=== PATIENT | female | born 1980 | race Hispanic/Latino ===

== ENCOUNTER 2017-05-28 03:54 | Emergency (ER) | payer OTHER ==
[2017-05-28 04:36] VITALS: TEMP 98.3; O2SAT 99
[2017-05-28] MEDS ORDERED: Sodium Chloride 0.9% 1,000 ML IV STA (04:51)
--- NOTE | 2017-05-28 05:14 | ED PDOC ---
Syncope/Near Syncope/Dizziness Chief Complaint (Provider): Syncope History Per: Patient History/Exam Limitations: no limitations Additional Complaint(s): 37 y/o F presenting for evaluation of syncopal episode that occurred a few hours ago. Pt explains feeling chills, fatigue and generalized body aches for 2 days. Today around 2 AM, pt took a 45 minutes warm bath with Epson and jin, pt sat at edge of bed when suddenly she felt dizzy, saw black spots on visual field and lost consciousness. Pt fell down and hit her head with a table. Pt believes syncope last for a few seconds. Pt reports seeing blood coming from lateral left orbital area. Pt reports [place]. Pt denies fever, CP, SOB, palpitations, peripheral edema. Medications: OCP's NKDA PMHx: denied PSHx: denied FH: Mother with atrial fibrillation SHx No tobacco or rec drugs, OBHx: LMP: currently with menses. <Luciano Blake - Last Filed: 05/28/17 06:22> <Femi Neri - Last Filed: 05/28/17 06:40> Time Seen by Provider: 05/28/17 04:07 Chief Complaint (Nursing): Syncope Supervising Attending Note - Attestation: I have personally seen and examined this patient.: Yes I have fully participated in the care of the patient.: Yes I have reviewed all pertinent clinical information: Yes <Femi Neri - Last Filed: 05/28/17 06:40> Past Medical History Vital Signs: Last Vital Signs Temp 98.3 F 05/28/17 04:33 Pulse 86 05/28/17 04:33 Resp 18 05/28/17 04:33 BP 145/97 H 05/28/17 04:33 Pulse Ox 99 05/28/17 04:33 - Medical History PMH: No Chronic Diseases - Family History Family History: States: No Known Family Hx - Living Arrangements Living Arrangements: Alone - Social History Current smoker - smoking cessation education provided: No Ex-Smoker (has not smoked in the last 12 months): No Alcohol: None Drugs: Denies, Cannabis, Cocaine <Luciano Blake - Last Filed: 05/28/17 06:22> Vital Signs: Last Vital Signs Temp 98.3 F 05/28/17 04:33 Pulse 86 05/28/17 04:33 Resp 18 05/28/17 04:33 BP 145/97 H 05/28/17 04:33 Pulse Ox 99 05/28/17 06:26 <Femi Neri - Last Filed: 05/28/17 06:40> - Allergies Allergies/Adverse Reactions: Allergies Allergy/AdvReac Type Severity Reaction Status Date / Time No Known Allergies Allergy Verified 05/28/17 04:32 Review of Systems Constitutional: Positive for: Chills, Malaise. Negative for: Fever Eyes: Negative for: Pain, Vision Change ENT: Negative for: Ear Pain, Ear Discharge Cardiovascular: Positive for: Chest Pain, Palpitations Respiratory: Positive for: Shortness of Breath Gastrointestinal: Negative for: Nausea, Vomiting, Abdominal Pain, Diarrhea Genitourinary Female: Negative for: Dysuria, Frequency, Incontinence Neurological: Positive for: Altered Mental Status <Luciano Blake - Last Filed: 05/28/17 06:22> Physical Exam - Reviewed Vital Signs Reviewed: Yes - Physical Exam Appears: Positive for: Well, Non-toxic, No Acute Distress Head Exam: Positive for: ATRAUMATIC, NORMAL INSPECTION Skin: Positive for: Normal Color. Negative for: Warm (Presence of ~ 1,5 cm laceration at left lateral eyebrow. Smal ecchymotic is present on left lateral eyebrow.) ENT: Positive for: Pharynx Is (erythematous.) Cardiovascular/Chest: Positive for: Regular Rate, Rhythm Respiratory: Positive for: Normal Breath Sounds Gastrointestinal/Abdominal: Positive for: Normal Exam, Soft. Negative for: Bowel Sounds, Tenderness <Luciano Blake - Last Filed: 05/28/17 06:22> - Laboratory Results Result Diagrams: 05/28/17 05:10 05/28/17 05:10 - ECG O2 Sat by Pulse Oximetry: 99 <Luciano Blake - Last Filed: 05/28/17 06:22> - Laboratory Results Result Diagrams: 05/28/17 05:10 05/28/17 05:10 <Femi Neri - Last Filed: 05/28/17 06:40> Medical Decision Making Medical Decision Makin37 y/o F presenting with Syncope. Plan: --CBC --BMP --CT scan of head --Chest X ray. --Urine BHCG qualitative --Urine dipstick --IV NSS 0.9% 05:10 Dermabond was applied to left facial laceration. Pt tolerated it well. 05:32 Pt reports improvement of fatigue and lightheadedness. 06:25 Pt reports feeling well. Awaiting lab results and CT Head final report. Will transfer of care to Dr Neri. <Luciano Blake - Last Filed: 05/28/17 06:22> Procedures - Laceration/Wound Repair Left Face Wound's Depth, Shape: superficial Wound Explored: clean Wound Debrided: minimal Wound Repaired With: Skin adhesive Wound Complexity: Simple <Femi Neri - Last Filed: 05/28/17 06:40> Disposition - Patient ED Disposition Is Patient to be Admitted: No - Disposition Disposition: Transfer of Care Disposition Time: 06:25 Patient Signed Over To: Femi Neri <Luciano Blake - Last Filed: 05/28/17 06:22> <Femi Neri - Last Filed: 05/28/17 06:40> - Clinical Impression Clinical Impression: Syncope - Disposition Condition: GOOD Forms: [employer] ([place]ish)
[2017-05-28 05:27] LABS: BASO % 0.2 % (0.0-2.0); EOS % 0.7 % (0.0-4.0); HEMATOCRIT 41.1 % (34.0-47.0); LYMPH # 1.3 K/uL (1.0-4.3); LYMPH % 21.1 % (20.0-40.0); MEAN CELL VOLUME 95.1 fl (81.0-99.0); MEAN CORPUSCULAR HEMOGLOBIN 31.8 pg (27.0-31.0); MEAN CORPUSCULAR HGB CONC 33.5 g/dL (33.0-37.0); MEAN PLATELET VOLUME 9.2 fl (7.2-11.7); MONO # 0.8 K/uL (0.0-0.8); RED CELL DISTRIBUTION WIDTH 12.6 % (11.5-14.5); WHITE BLOOD COUNT 6.1 K/uL (4.8-10.8)
[2017-05-28 05:31] LABS: BLOOD UREA NITROGEN 9 mg/dl (7-17); CALCIUM 9.2 mg/dL (8.4-10.2); CARBON DIOXIDE 24 mmol/L (22-30); CHLORIDE 102 mmol/L (98-107); GFR AFRICAN-AMERICAN > 60; GLUCOSE,RANDOM 95 mg/dL (65-105); POTASSIUM 4.4 MMOL/L (3.6-5.0); SODIUM 136 mmol/l (132-148)
--- NOTE | 2017-05-28 06:00 | CT ---
EXAM: CT Head Without Intravenous Contrast CLINICAL HISTORY: 37 years old, female; Injury or trauma; Fall; Initial encounter; Abrasion; Eye; Left; Injury details: Fell in bathroom abrasion over the left eye brows and left side of face; Additional info: Sycnope, head injury TECHNIQUE: Axial computed tomography images of the head/brain without intravenous contrast. All CT scans at this facility use one or more dose reduction techniques, viz.: automated exposure control; ma/kV adjustment per patient size (including targeted exams where dose is matched to indication; i.e. head); or iterative reconstruction technique. Coronal and sagittal reformatted images were created and reviewed. COMPARISON: No relevant prior studies available. FINDINGS: Limitations: Technical factors. Brain: No intracranial hemorrhage. No mass. No edema. Ventricles: No hydrocephalus. Bones/joints: No acute fracture. Soft tissues: Small calcification or foreign body along LEFT periorbital soft tissues. Sinuses: Mild mucosal thickening/minimal fluid of LEFT maxillary sinus. Scattered minimal to mild mucosal thickening of remaining sinuses. Mastoid air cells: No mastoid effusion. Orbits: Unremarkable as visualized. IMPRESSION: 1. No intracranial hemorrhage. 2. Incidental/non-acute findings are described above.
[2017-05-28 07:08] VITALS: BP 138/94; PULSE 82; RESP 16
--- NOTE | 2017-05-28 09:03 | CARD ---
APPROVED REPORT EKG Measurement Heart [id number] <Conclusion> Normal sinus rhythm Normal ECG
== END 2017-05-28 07:00 | disposition home or self-care (01) ==
LOC: H.ER 03:54
DX: R55 Syncope and collapse (principal); S01.81XA Laceration without foreign body of other part of head, initial encounter
CPT/HCPCS: 70450; 80048; 81025; 85025; 93005; 96360; 99283; J7040